=== PATIENT | female | born 1965 | race Caucasian/White ===

== ENCOUNTER 2018-03-17 06:54 | Inpatient (IN) | payer MEDICAID, OTHER ==
[~2018-03-17] VITALS: Ht 157.5 cm; Wt 83.9 kg
[~2018-03-17 06:54] MED LIST: ASPI-1159 PO; ATOR20TA PO; HYDR25TA PO; LISI-186 PO; METO100T16 PO; VALS320T2 PO
[2018-03-17] MEDS ORDERED: ASPIRIN 81MG TABLET PO ONE (07:45)
[2018-03-17] MEDS ORDERED: DILTIAZEM HCL 60MG TABLET PO ONE (07:45)
[2018-03-17 08:12] LABS: BASOPHILS % 0.4 % (0.0-2.0); EOSINOPHILS % 2.2 % (0.0-5.0); HEMATOCRIT. 42.1 % (36.0-48.0); HEMOGLOBIN. 14.4 g/dL (12.0-16.0); LYMPHOCYTES % 24.8 % (20.0-50.0); MEAN CORPUSCULAR HEMOGLOBIN 31.7 pg (28.0-32.0); MEAN CORPUSCULAR VOLUME 92.8 fL (81.0-99.0); NEUTROPHILS % 65.6 % (40.0-76.0); PLATELET 277 x1000/uL (130-400); RED BLOOD CELL COUNT 4.53 mill/uL (4.2-5.4); RED CELL DISTRIBUTION WIDTH 13.8 % (11.6-14.6)
[2018-03-17 08:17] LABS: CHLORIDE 105 mEq/L (98-107)
[2018-03-17 08:22] LABS: D-DIMER 0.21 mg/L FEU (<0.50); PARTIAL THROMBOPLASTIN TIME 28.4 sec (23.4-31.0); PROTHROMBIN TIME 9.6 sec (9.1-11.1)
[2018-03-17 08:25] LABS: HCG SCREEN NEGATIVE
[2018-03-17] MEDS ORDERED: DILT-26 PO (10:47)
[2018-03-17] MEDS ORDERED: ALBU18HF2 IH (10:49)
[2018-03-17 11:13] VITALS: BP 148/102
[2018-03-17] MEDS ORDERED: ONDANSETRON HCL 4MG/2ML INJ IV PRN (11:45)
[2018-03-17] MEDS ORDERED: MAGNESIUM/ALUMINUM HYDROXIDE/SIMETHICONE 30ML UDC PO PRN (11:45)
[2018-03-17] MEDS ORDERED: HYDROCODONE/ACETAMINOPHEN 5/325MG TABLET PO PRN (11:45)
[2018-03-17] MEDS ORDERED: ACETAMINOPHEN 650MG/20.3ML UDC GT PRN (11:45)
[2018-03-17] MEDS ORDERED: ACETAMINOPHEN 325MG TABLET PO PRN (11:45)
[2018-03-17] MEDS ORDERED: HYDROCODONE/ACETAMINOPHEN 10/325MG TABLET PO PRN (11:45)
[2018-03-17] MEDS ORDERED: ACETAMINOPHEN 650MG SUPP PR PRN (11:45)
[2018-03-17] MEDS ORDERED: INFLUENZA VIRUS VACCINE(AFLURIA) 0.5ML SYR IM ONE (12:00)
[2018-03-17] MEDS ORDERED: CLONIDINE 0.2MG TABLET PO PRN (13:15)
[2018-03-17] MEDS ORDERED: POTASSIUM CHLORIDE 20MEQ TABLET SR PO NR (13:30)
[2018-03-17] MEDS: LOSARTAN POTASSIUM 25 MG TABLET PO SCH ×2 (14:12→16:43)
[2018-03-17] MEDS: IPRATROPIUM/ALBUTEROL 0.5-3(2.5)MG/3ML NEB INH SCH ×2 (14:14→21:30)
[2018-03-17 15:56] VITALS: BP 114/64
[2018-03-17 16:50] LABS: CREATINE KINASE 59 IU/L (26-192)
[2018-03-17 16:52] LABS: CREATINE KINASE MB FRACTION < 1.0 ng/mL (0.5-3.6)
[2018-03-17] MEDS ORDERED: IPRATROPIUM/ALBUTEROL 0.5-3(2.5)MG/3ML NEB HHN PRN (18:45)
[2018-03-17 20:00] VITALS: BP 135/85
[2018-03-17] MEDS: METOPROLOL TARTRATE 100MG TABLET PO SCH (21:11)
[2018-03-17 21:57] LABS: CLARITY URINE CLOUDY (CLEAR); COLOR URINE YELLOW (YELLOW); KETONES URINE NEGATIVE (NEGATIVE); LEUKOCYTE ESTERASE URINE 3+ (NEGATIVE); NITRITE URINE POSITIVE (NEGATIVE); OCCULT BLOOD URINE TRACE (NEGATIVE); PROTEIN URINE NEGATIVE (NEGATIVE); SPECIFIC GRAVITY URINE 1.017 (1.005-1.030); UROBILINOGEN URINE 0.2 E.U./dL (0.2-1.0)
[2018-03-17 22:20] LABS: *AMPHETAMINES SCREEN URINE NEGATIVE (NEGATIVE)
[2018-03-17 22:21] LABS: *BENZODIAZEPINES SCREEN URINE NEGATIVE (NEGATIVE); *COCAINE SCREEN URINE NEGATIVE (NEGATIVE); CANNABINOID URINE SCREEN NEGATIVE (NEGATIVE); METHADONE URINE SCREEN NEGATIVE (NEGATIVE); OPIATES URINE SCREEN NEGATIVE (NEGATIVE); PHENCYCLIDINE URINE SCREEN NEGATIVE (NEGATIVE)
[2018-03-17 22:22] LABS: *BARBITURATES SCREEN URINE NEGATIVE (NEGATIVE)
[2018-03-18] VITALS (7 sets, daily range): BP systolic 119–139; BP diastolic 57–89
[2018-03-18] MEDS: IPRATROPIUM/ALBUTEROL 0.5-3(2.5)MG/3ML NEB INH SCH ×4 (02:07→20:00)
[2018-03-18 08:24] LABS: BASOPHILS % 0.6 % (0.0-2.0); EOSINOPHILS % 1.9 % (0.0-5.0); HEMATOCRIT. 40.5 % (36.0-48.0); HEMOGLOBIN. 13.7 g/dL (12.0-16.0); LYMPHOCYTES % 25.6 % (20.0-50.0); MEAN CORPUSCULAR HEMOGLOBIN 31.8 pg (28.0-32.0); MEAN CORPUSCULAR VOLUME 94.2 fL (81.0-99.0); MEAN PLATELET VOLUME 8.3 fl (7.4-10.4); MONOCYTES % 6.7 % (2.0-8.0); NEUTROPHILS % 65.2 % (40.0-76.0); PLATELET 260 x1000/uL (130-400); RED CELL DISTRIBUTION WIDTH 13.9 % (11.6-14.6)
[2018-03-18] MEDS: LOSARTAN POTASSIUM 25 MG TABLET PO SCH ×2 (09:07→17:00)
[2018-03-18] MEDS: METOPROLOL TARTRATE 100MG TABLET PO SCH ×2 (09:08→21:19)
[2018-03-18 09:31] LABS: CHLORIDE 106 mEq/L (98-107)
[2018-03-18 09:39] LABS: PHOSPHORUS 3.6 mg/dL (2.5-4.9)
[2018-03-18 09:40] LABS: LDL CHOLESTEROL 149 mg/dL (5-100); T4 FREE 0.93 ng/dL (0.76-1.46)
[2018-03-18 09:42] LABS: HDL CHOLESTEROL 44 mg/dL (40-59)
[2018-03-18] MEDS ORDERED: ATORVASTATIN CALCIUM 20MG TABLET PO SCH (21:00)
[2018-03-19] VITALS: BP 161/95
[2018-03-19] MEDS: IPRATROPIUM/ALBUTEROL 0.5-3(2.5)MG/3ML NEB INH SCH ×3 (01:48→13:55)
[2018-03-19 04:00] VITALS: BP 127/83
[2018-03-19 07:16] LABS: BASOPHILS % 0.4 % (0.0-2.0); EOSINOPHILS % 2.3 % (0.0-5.0); HEMATOCRIT. 39.7 % (36.0-48.0); HEMOGLOBIN. 13.4 g/dL (12.0-16.0); LYMPHOCYTES % 26.1 % (20.0-50.0); MEAN CORPUSCULAR HEMOGLOBIN 31.7 pg (28.0-32.0); MEAN CORPUSCULAR VOLUME 93.8 fL (81.0-99.0); MEAN PLATELET VOLUME 8.3 fl (7.4-10.4); MONOCYTES % 8.6 % (2.0-8.0); NEUTROPHILS % 62.6 % (40.0-76.0); PLATELET 256 x1000/uL (130-400); RED BLOOD CELL COUNT 4.23 mill/uL (4.2-5.4); RED CELL DISTRIBUTION WIDTH 13.9 % (11.6-14.6)
[2018-03-19 07:59] LABS: CHLORIDE 104 mEq/L (98-107)
[2018-03-19 08:00] VITALS: BP 129/86
[2018-03-19 08:14] LABS: PHOSPHORUS 4.2 mg/dL (2.5-4.9)
[2018-03-19] MEDS: LOSARTAN POTASSIUM 25 MG TABLET PO SCH (09:36)
[2018-03-19] MEDS: METOPROLOL TARTRATE 100MG TABLET PO SCH (09:36)
[2018-03-19 12:00] VITALS: BP 125/89
[2018-03-19] MEDS ORDERED: LOSA25TA3 PO (12:40)
== END 2018-03-19 18:40 | disposition home or self-care (01) | DRG 201 ==
LOC: ER 06:54 → 7WST 09:13 → ENRESERV 09:24
PROVIDERS: ADMIT Internal Medicine; ATTEND Internal Medicine
DX: I47.1 Supraventricular tachycardia (principal); I11.9 Hypertensive heart disease without heart failure; D64.9 Anemia, unspecified; E78.00 Pure hypercholesterolemia, unspecified; R73.9 Hyperglycemia, unspecified; J45.909 Unspecified asthma, uncomplicated; E78.5 Hyperlipidemia, unspecified; I25.2 Old myocardial infarction; Z95.5 Presence of coronary angioplasty implant and graft; Z87.442 Personal history of urinary calculi; Z88.5 Allergy status to narcotic agent; Z91.048 Other nonmedicinal substance allergy status; Z79.82 Long term (current) use of aspirin; Z79.899 Other long term (current) drug therapy
CPT/HCPCS: 36415; 71045; 80048; 80061; 80305; 82550; 82553; 83735; 83880; 84100; 84439; 84443; 84481; 84484; 84703; 85379; 90686; 93005; 93306; 93970; 94640; 99285; J7620

== ENCOUNTER 2018-08-29 21:26 | Emergency (ER) | payer MEDICAID ==
[~2018-08-29 21:26] MED LIST changes: +ALBU18HF2 IH; -HYDR25TA PO; -LISI-186 PO; +LOSA25TA3 PO; -VALS320T2 PO
== END 2018-08-29 22:31 | disposition left against medical advice (07) ==
LOC: ER 21:26
DX: Z53.21 Procedure and treatment not carried out due to patient leaving prior to being seen by health care provider (principal)

== ENCOUNTER 2020-05-04 17:00 | Emergency (ER) | payer MEDICAID ==
[~2020-05-04] VITALS: Ht 165.1 cm; Wt 90.0 kg
[~2020-05-04 17:00] MED LIST changes: -ALBU18HF2 IH; -ASPI-1159 PO; +ASPI-1497 PO; +CLON0.1T PO; +DIGO125T80 MT; +ISOS10TA2 MT
[2020-05-04] MEDS ORDERED: ACETAMINOPHEN 325MG TABLET PO STA (19:56)
[2020-05-04] MEDS ORDERED: IBUPROFEN 600MG TABLET PO STA (19:56)
[2020-05-04 20:10] LABS: BASOPHILS % 0.3 % (0.0-2.0); EOSINOPHILS % 2.5 % (0.0-5.0); HEMATOCRIT. 44.3 % (36.0-48.0); HEMOGLOBIN. 14.6 g/dL (12.0-16.0); LYMPHOCYTES % 13.5 % (20.0-50.0); MEAN CORPUSCULAR HEMOGLOBIN 31.9 pg (28.0-32.0); MEAN CORPUSCULAR VOLUME 96.9 fL (81.0-99.0); MEAN PLATELET VOLUME 9.6 fl (7.4-10.4); MONOCYTES % 7.7 % (2.0-8.0); PLATELET 246 x1000/uL (130-400); RED BLOOD CELL COUNT 4.57 mill/uL (4.2-5.4); RED CELL DISTRIBUTION WIDTH 15.9 % (11.6-14.6)
[2020-05-04 20:11] LABS: CHLORIDE 109 mEq/L (98-107)
[2020-05-04 20:15] LABS: HCG SCREEN NEGATIVE
[2020-05-04 20:20] LABS: CLARITY URINE CLEAR (CLEAR); COLOR URINE DARK YELLOW (YELLOW); KETONES URINE TRACE (NEGATIVE); LEUKOCYTE ESTERASE URINE 1+ (NEGATIVE); NITRITE URINE NEGATIVE (NEGATIVE); OCCULT BLOOD URINE NEGATIVE (NEGATIVE); PROTEIN URINE 1+ (NEGATIVE); SPECIFIC GRAVITY URINE 1.024 (1.005-1.030)
[2020-05-04 23:25] VITALS: BP 132/82
== END 2020-05-04 23:40 | disposition home or self-care (01) ==
LOC: ER 17:00
DX: R10.9 Unspecified abdominal pain (principal); J90 Pleural effusion, not elsewhere classified; R11.0 Nausea; M79.89 Other specified soft tissue disorders; I25.2 Old myocardial infarction; Z86.73 Personal history of transient ischemic attack (TIA), and cerebral infarction without residual deficits; Z87.442 Personal history of urinary calculi; Z91.041 Radiographic dye allergy status; Z91.013 Allergy to seafood; Z79.82 Long term (current) use of aspirin; Z79.899 Other long term (current) drug therapy; Z88.6 Allergy status to analgesic agent; Z88.8 Allergy status to other drugs, medicaments and biological substances; Z88.5 Allergy status to narcotic agent; Z90.49 Acquired absence of other specified parts of digestive tract; Z90.89 Acquired absence of other organs; Z98.890 Other specified postprocedural states
CPT/HCPCS: 36415; 71045; 76705; 80053; 81003; 83880; 84703; 85025; 93005; 99285

== ENCOUNTER 2020-08-14 21:04 | Inpatient (IN) | payer MEDICAID, OTHER ==
[~2020-08-14] VITALS: Ht 157.5 cm; Wt 105.7 kg
[2020-08-14] MEDS ORDERED: LORAZEPAM 1MG TABLET PO ONE (21:45)
[2020-08-14] MEDS ORDERED: FUROSEMIDE 40MG/4ML VIAL IVP ONE (22:45)
[2020-08-14 23:21] LABS: CHLORIDE 103 mEq/L (98-107)
[2020-08-14] MEDS ORDERED: ASPIRIN 325MG EC TABLET PO NR (23:45)
[2020-08-14 23:47] LABS: BASOPHILS % 0.8 % (0.0-2.0); EOSINOPHILS % 1.8 % (0.0-5.0); HEMATOCRIT. 41.7 % (36.0-48.0); HEMOGLOBIN. 13.5 g/dL (12.0-16.0); LYMPHOCYTES % 16.1 % (20.0-50.0); MEAN CORPUSCULAR HEMOGLOBIN 30.9 pg (28.0-32.0); MEAN CORPUSCULAR VOLUME 95.5 fL (81.0-99.0); MEAN PLATELET VOLUME 8.4 fl (7.4-10.4); MONOCYTES % 5.6 % (2.0-8.0); NEUTROPHILS % 75.7 % (40.0-76.0); PLATELET 280 x1000/uL (130-400); RED BLOOD CELL COUNT 4.37 mill/uL (4.2-5.4); RED CELL DISTRIBUTION WIDTH 17.3 % (11.6-14.6)
[2020-08-15 02:16] LABS: CLARITY URINE CLEAR (CLEAR); COLOR URINE YELLOW (YELLOW); KETONES URINE NEGATIVE (NEGATIVE); LEUKOCYTE ESTERASE URINE NEGATIVE (NEGATIVE); NITRITE URINE NEGATIVE (NEGATIVE); OCCULT BLOOD URINE NEGATIVE (NEGATIVE); PH URINE 6.5 (4.5-8.0); PROTEIN URINE NEGATIVE (NEGATIVE); UROBILINOGEN URINE 0.2 E.U./dL (0.2-1.0)
[2020-08-15] MEDS ORDERED: FENTANYL CITRATE/PF 50MCG/ML 2ML VIAL ONE ×3 (03:51→05:49)
[2020-08-15] MEDS ORDERED: BUPIVACAINE HCL/PF 0.25% (2.5MG/ML) 10ML ONE ×3 (03:51→05:50)
[2020-08-15] MEDS ORDERED: CLONIDINE 0.1MG TABLET PO PRN (09:30)
[2020-08-15] MEDS ORDERED: ACETAMINOPHEN 325MG TABLET PO PRN (09:30)
[2020-08-15] MEDS ORDERED: DOCUSATE SODIUM 100MG CAPSULE PO PRN (09:30)
[2020-08-15] MEDS ORDERED: LORAZEPAM 0.5MG TABLET PO PRN (09:30)
[2020-08-15] MEDS ORDERED: LOSA1TAB40 PO (11:49)
[2020-08-15] MEDS ORDERED: OMEP20CA14 MT (11:50)
[2020-08-15 11:52] VITALS: BP 121/94
[2020-08-15 12:00] VITALS: BP 101/80
[2020-08-15] MEDS: FUROSEMIDE 40MG/4ML VIAL IVP SCH ×2 (12:57→16:47)
[2020-08-15] MEDS: POTASSIUM CHLORIDE 20MEQ TABLET SR PO SCH (12:57)
[2020-08-15 17:25] VITALS: BP 107/74
[2020-08-15] MEDS: ASPIRIN 81MG EC TABLET PO SCH (17:49)
[2020-08-15] MEDS: OMEPRAZOLE 20MG CAPSULE EXTENDED RELEASE PO SCH (17:49)
[2020-08-15] MEDS: LORAZEPAM 2MG/ML CPJ IV PRN (17:50)
[2020-08-15 20:00] VITALS: BP 104/75
[2020-08-15] MEDS: BUSPIRONE HCL 5MG TABLET PO SCH (21:35)
[2020-08-15] MEDS: ATORVASTATIN CALCIUM 20MG TABLET PO SCH (21:36)
[2020-08-15] MEDS: METOPROLOL TARTRATE 50MG TABLET PO SCH (21:36)
[2020-08-16] VITALS: BP 99/77
[2020-08-16] MEDS: LORAZEPAM 2MG/ML CPJ IV PRN (03:00)
[2020-08-16 04:00] VITALS: BP 113/83
[2020-08-16 06:55] LABS: BASOPHILS % 0.9 % (0.0-2.0); EOSINOPHILS % 0.9 % (0.0-5.0); HEMATOCRIT. 40.9 % (36.0-48.0); HEMOGLOBIN. 13.8 g/dL (12.0-16.0); LYMPHOCYTES % 15.5 % (20.0-50.0); MEAN CORPUSCULAR HEMOGLOBIN 32.1 pg (28.0-32.0); MEAN CORPUSCULAR VOLUME 95.3 fL (81.0-99.0); MEAN PLATELET VOLUME 8.7 fl (7.4-10.4); MONOCYTES % 5.9 % (2.0-8.0); NEUTROPHILS % 76.8 % (40.0-76.0); PLATELET 277 x1000/uL (130-400); RED BLOOD CELL COUNT 4.29 mill/uL (4.2-5.4); RED CELL DISTRIBUTION WIDTH 17.7 % (11.6-14.6)
[2020-08-16 07:17] LABS: CHLORIDE 102 mEq/L (98-107)
[2020-08-16] MEDS: LOSARTAN POTASSIUM 25 MG TABLET PO SCH (09:00)
[2020-08-16] MEDS: METOPROLOL TARTRATE 50MG TABLET PO SCH (09:00)
[2020-08-16] MEDS: ASPIRIN 81MG EC TABLET PO SCH (09:03)
[2020-08-16] MEDS: FUROSEMIDE 40MG/4ML VIAL IVP SCH ×2 (09:03→18:00)
[2020-08-16] MEDS: OMEPRAZOLE 20MG CAPSULE EXTENDED RELEASE PO SCH (09:03)
[2020-08-16] MEDS: BUSPIRONE HCL 5MG TABLET PO SCH ×2 (09:03→20:57)
[2020-08-16] MEDS: POTASSIUM CHLORIDE 20MEQ TABLET SR PO SCH (09:07)
[2020-08-16 12:01] VITALS: BP 103/75
[2020-08-16] MEDS: SPIRONOLACTONE 25MG TABLET PO SCH (15:14)
[2020-08-16 16:05] VITALS: BP 114/81
[2020-08-16 20:00] VITALS: BP 106/82
[2020-08-16] MEDS: FAMOTIDINE 20MG TABLET PO SCH (20:57)
[2020-08-16] MEDS: ATORVASTATIN CALCIUM 20MG TABLET PO SCH (20:57)
[2020-08-16] MEDS: CARVEDILOL 6.25 MG TABLET PO SCH (20:58)
[2020-08-16] MEDS: ACETAMINOPHEN 325MG TABLET PO PRN (21:04)
[2020-08-17] VITALS: BP 105/80
[2020-08-17 04:00] VITALS: BP 111/87
[2020-08-17 07:41] LABS: BASOPHILS % 0.8 % (0.0-2.0); HEMATOCRIT. 39.8 % (36.0-48.0); HEMOGLOBIN. 13.2 g/dL (12.0-16.0); LYMPHOCYTES % 16.6 % (20.0-50.0); MEAN CORPUSCULAR HEMOGLOBIN 31.2 pg (28.0-32.0); MEAN PLATELET VOLUME 8.5 fl (7.4-10.4); MONOCYTES % 5.7 % (2.0-8.0); NEUTROPHILS % 75.9 % (40.0-76.0); PLATELET 227 x1000/uL (130-400); RED BLOOD CELL COUNT 4.24 mill/uL (4.2-5.4); RED CELL DISTRIBUTION WIDTH 17.7 % (11.6-14.6)
[2020-08-17 08:00] VITALS: BP 120/93
[2020-08-17] MEDS: BUSPIRONE HCL 5MG TABLET PO SCH ×2 (08:29→21:37)
[2020-08-17] MEDS: SPIRONOLACTONE 25MG TABLET PO SCH (08:29)
[2020-08-17] MEDS: FUROSEMIDE 40MG/4ML VIAL IVP SCH ×2 (08:30→17:04)
[2020-08-17] MEDS: CARVEDILOL 6.25 MG TABLET PO SCH ×2 (08:30→21:38)
[2020-08-17] MEDS: ASPIRIN 81MG EC TABLET PO SCH (08:30)
[2020-08-17] MEDS: FAMOTIDINE 20MG TABLET PO SCH ×2 (08:30→21:37)
[2020-08-17 08:33] LABS: CHLORIDE 99 mEq/L (98-107)
[2020-08-17] MEDS: LOSARTAN POTASSIUM 25 MG TABLET PO SCH (08:38)
[2020-08-17] MEDS: ONDANSETRON HCL 4MG/2ML INJ IV PRN ×2 (09:56→17:04)
[2020-08-17] MEDS: ACETAMINOPHEN 325MG TABLET PO PRN (09:56)
[2020-08-17 12:00] VITALS: BP 115/88
[2020-08-17 16:00] VITALS: BP 102/71
[2020-08-17 20:34] VITALS: BP 117/69
[2020-08-17] MEDS: ATORVASTATIN CALCIUM 20MG TABLET PO SCH (21:37)
[2020-08-18 00:29] VITALS: BP 103/67
[2020-08-18 04:00] VITALS: BP 102/75
[2020-08-18 07:16] LABS: BASOPHILS % 0.7 % (0.0-2.0); EOSINOPHILS % 1.1 % (0.0-5.0); HEMATOCRIT. 39.5 % (36.0-48.0); HEMOGLOBIN. 13.1 g/dL (12.0-16.0); LYMPHOCYTES % 15.9 % (20.0-50.0); MEAN CORPUSCULAR HEMOGLOBIN 31.4 pg (28.0-32.0); MEAN CORPUSCULAR VOLUME 94.9 fL (81.0-99.0); MEAN PLATELET VOLUME 9.7 fl (7.4-10.4); MONOCYTES % 7.1 % (2.0-8.0); NEUTROPHILS % 75.2 % (40.0-76.0); PLATELET 202 x1000/uL (130-400); RED BLOOD CELL COUNT 4.16 mill/uL (4.2-5.4); RED CELL DISTRIBUTION WIDTH 17.4 % (11.6-14.6)
[2020-08-18 07:26] LABS: CHLORIDE 98 mEq/L (98-107)
[2020-08-18 08:00] VITALS: BP 118/85
[2020-08-18] MEDS: FUROSEMIDE 40MG/4ML VIAL IVP SCH ×2 (09:20→16:28)
[2020-08-18] MEDS: LOSARTAN POTASSIUM 25 MG TABLET PO SCH (09:20)
[2020-08-18] MEDS: FAMOTIDINE 20MG TABLET PO SCH ×2 (09:20→21:38)
[2020-08-18] MEDS: ASPIRIN 81MG EC TABLET PO SCH (09:20)
[2020-08-18] MEDS: CARVEDILOL 6.25 MG TABLET PO SCH ×2 (09:30→21:00)
[2020-08-18] MEDS: SPIRONOLACTONE 25MG TABLET PO SCH (09:31)
[2020-08-18] MEDS: BUSPIRONE HCL 10MG TABLET PO SCH ×2 (10:11→21:38)
[2020-08-18 12:00] VITALS: BP 95/64
[2020-08-18] MEDS ORDERED: SILVER NITRATE APPLICATOR STICK TOP NR (12:05)
[2020-08-18] MEDS: HYDROCORTISONE 2.5% CREAM 20GM TOP SCH (15:07)
[2020-08-18 16:00] VITALS: BP 100/64
[2020-08-18 20:00] VITALS: BP 90/63
[2020-08-18] MEDS: ATORVASTATIN CALCIUM 20MG TABLET PO SCH (21:38)
[2020-08-19] VITALS: BP 91/53
[2020-08-19 04:00] VITALS: BP 108/86
[2020-08-19 07:08] LABS: BASOPHILS % 0.5 % (0.0-2.0); EOSINOPHILS % 1.7 % (0.0-5.0); HEMATOCRIT. 38.8 % (36.0-48.0); HEMOGLOBIN. 12.9 g/dL (12.0-16.0); LYMPHOCYTES % 18.1 % (20.0-50.0); MEAN CORPUSCULAR HEMOGLOBIN 31.6 pg (28.0-32.0); MEAN CORPUSCULAR VOLUME 94.9 fL (81.0-99.0); MEAN PLATELET VOLUME 9.2 fl (7.4-10.4); NEUTROPHILS % 71.7 % (40.0-76.0); PLATELET 219 x1000/uL (130-400); RED BLOOD CELL COUNT 4.09 mill/uL (4.2-5.4); RED CELL DISTRIBUTION WIDTH 17.5 % (11.6-14.6)
[2020-08-19 08:00] VITALS: BP 118/89
[2020-08-19] MEDS: ASPIRIN 81MG EC TABLET PO SCH (09:47)
[2020-08-19] MEDS: FUROSEMIDE 40MG/4ML VIAL IVP SCH (09:48)
[2020-08-19] MEDS: SPIRONOLACTONE 25MG TABLET PO SCH (09:48)
[2020-08-19] MEDS: FAMOTIDINE 20MG TABLET PO SCH (09:48)
[2020-08-19] MEDS: BUSPIRONE HCL 10MG TABLET PO SCH (09:48)
[2020-08-19] MEDS: CARVEDILOL 6.25 MG TABLET PO SCH (09:48)
[2020-08-19] MEDS: LOSARTAN POTASSIUM 25 MG TABLET PO SCH (09:56)
[2020-08-19] MEDS ORDERED: PHENOL/SODIUM PHENOLATE 1.4% SRPAY 177ML MM PRN (11:00)
[2020-08-19] MEDS ORDERED: HYDR453.3 TOP (11:06)
[2020-08-19] MEDS ORDERED: BUSP10TA4 PO (11:06)
[2020-08-19] MEDS ORDERED: LOSA25TA3 PO (11:06)
[2020-08-19] MEDS ORDERED: FURO40TA5 MT (11:06)
[2020-08-19] MEDS ORDERED: COR6 PO (11:06)
[2020-08-19] MEDS ORDERED: FAMO20TA8 PO (11:06)
[2020-08-19] MEDS ORDERED: SPIR25TA PO (11:06)
[2020-08-19] MEDS ORDERED: ACET325T52 MT (11:07)
[2020-08-19] MEDS: HYDROCORTISONE 2.5% CREAM 20GM TOP SCH (11:30)
[2020-08-19] MEDS ORDERED: SILVER NITRATE APPLICATOR STICK TOP NR (11:30)
[2020-08-19 12:00] VITALS: BP 120/63
[2020-08-19 16:00] VITALS: BP 108/78
[2020-08-19 17:34] VITALS: BP 108/84
== END 2020-08-19 18:30 | disposition home or self-care (01) | DRG 194 ==
LOC: ER 21:04 → 6WST 08-15 00:08 → ENRESERV 08-15 08:04
PROVIDERS: ADMIT Internal Medicine; ATTEND Internal Medicine
PROC: 0HDNXZZ Extraction of Left Foot Skin, External Approach (ICD-10-PCS; principal; 2020-08-18)
DX: I11.0 Hypertensive heart disease with heart failure (principal); I47.1 Supraventricular tachycardia; I50.23 Acute on chronic systolic (congestive) heart failure; E66.01 Morbid (severe) obesity due to excess calories; F41.1 Generalized anxiety disorder; F43.20 Adjustment disorder, unspecified; I27.81 Cor pulmonale (chronic); I42.0 Dilated cardiomyopathy; E87.6 Hypokalemia; J45.909 Unspecified asthma, uncomplicated; I31.3 Pericardial effusion (noninflammatory); I87.2 Venous insufficiency (chronic) (peripheral); I73.9 Peripheral vascular disease, unspecified; L84 Corns and callosities; I24.8 Other forms of acute ischemic heart disease; B07.9 Viral wart, unspecified; I25.10 Atherosclerotic heart disease of native coronary artery without angina pectoris; I25.2 Old myocardial infarction; Z79.82 Long term (current) use of aspirin; Z87.442 Personal history of urinary calculi; Z91.041 Radiographic dye allergy status; Z86.73 Personal history of transient ischemic attack (TIA), and cerebral infarction without residual deficits; Z88.8 Allergy status to other drugs, medicaments and biological substances; Z91.013 Allergy to seafood; Z98.891 History of uterine scar from previous surgery; Z88.6 Allergy status to analgesic agent; Z91.018 Allergy to other foods; Z68.41 Body mass index [BMI] 40.0-44.9, adult
CPT/HCPCS: 36415; 71045; 76700; 80048; 80053; 80061; 81003; 83735; 83880; 84443; 84484; 85025; 93005; 93306; 93923; 99291; C1893; J1940; J2060; J2405; J3010; J3490

== ENCOUNTER 2022-05-24 12:57 | Inpatient (IN) | payer MEDICAID, OTHER ==
[~2022-05-24] VITALS: Ht 152.4 cm; Wt 99.8 kg
[~2022-05-24 12:57] MED LIST changes: +ACET325T52 MT; +BUSP10TA4 PO; -CLON0.1T PO; +COR6 PO; -DIGO125T80 MT; +FAMO20TA8 PO; +FURO40TA5 MT; +HYDR453.3 TOP; -ISOS10TA2 MT; -METO100T16 PO; +SPIR25TA PO
[2022-05-24] MEDS ORDERED: SODIUM CHLORIDE 0.9% 1,000 ML IV ONE (14:45)
[2022-05-24] MEDS ORDERED: DIPHENHYDRAMINE 50MG/ML VIAL IV ONE (14:45)
[2022-05-24] MEDS ORDERED: METOCLOPRAMIDE HCL 10MG/2ML VIAL IV ONE (14:45)
[2022-05-24 15:45] LABS: BASOPHILS % 0.7 % (0.0-2.0); EOSINOPHILS % 1.7 % (0.0-5.0); HEMATOCRIT. 42.5 % (36.0-48.0); HEMOGLOBIN. 14.7 g/dL (12.0-16.0); LYMPHOCYTES % 23.9 % (20.0-50.0); MEAN CORPUSCULAR HEMOGLOBIN 31.9 pg (28.0-32.0); MEAN PLATELET VOLUME 8.6 fl (7.4-10.4); MONOCYTES % 9.2 % (2.0-8.0); NEUTROPHILS % 64.5 % (40.0-76.0); PLATELET 240 x1000/uL (130-400); RED BLOOD CELL COUNT 4.62 mill/uL (4.2-5.4); RED CELL DISTRIBUTION WIDTH 13.6 % (11.6-14.6)
[2022-05-24 16:08] LABS: CHLORIDE 107 mEq/L (98-107)
[2022-05-24 16:10] LABS: HCG SCREEN NEGATIVE
[2022-05-24 16:23] LABS: CLARITY URINE CLOUDY (CLEAR); COLOR URINE DARK YELLOW (YELLOW); KETONES URINE TRACE (NEGATIVE); LEUKOCYTE ESTERASE URINE TRACE (NEGATIVE); NITRITE URINE NEGATIVE (NEGATIVE); OCCULT BLOOD URINE NEGATIVE (NEGATIVE); PH URINE 5.5 (4.5-8.0); PROTEIN URINE 2+ (NEGATIVE); SPECIFIC GRAVITY URINE 1.029 (1.005-1.030)
[2022-05-24] MEDS ORDERED: ENOXAPARIN 100MG/ML SYR SUBCUT ONE (17:15)
[2022-05-25] VITALS (7 sets, daily range): BP systolic 113–172; BP diastolic 67–104
[2022-05-25] MEDS ORDERED: ALBU6.7H15 INH (00:40)
[2022-05-25] MEDS ORDERED: CARV12.545 MT (00:40)
[2022-05-25] MEDS ORDERED: SEMA14TA2 PO (00:40)
[2022-05-25] MEDS ORDERED: DEXTROSE 50% WATER 50ML SYRINGE IV PRN (04:15)
[2022-05-25] MEDS ORDERED: CLONIDINE 0.1MG TABLET PO PRN (04:15)
[2022-05-25] MEDS ORDERED: TRAMADOL 50MG TABLET PO PRN (04:15)
[2022-05-25] MEDS: ACETAMINOPHEN 325MG TABLET PO PRN ×2 (04:36→19:37)
[2022-05-25] MEDS: BLOOD SUGAR DIAGNOSTIC STRIP TEST SCH ×4 (06:36→20:43)
[2022-05-25] MEDS ORDERED: OMEP20CA14 MT (06:42)
[2022-05-25] MEDS: INSULIN LISPRO 100 UNITS/ML SUBCUT SCH ×4 (07:31→20:43)
[2022-05-25] MEDS: ASPIRIN 81MG EC TABLET PO SCH (08:48)
[2022-05-25] MEDS: SPIRONOLACTONE 25MG TABLET PO SCH (08:48)
[2022-05-25] MEDS: CARVEDILOL 12.5MG TABLET PO SCH ×2 (08:49→17:28)
[2022-05-25] MEDS: OMEPRAZOLE 20MG CAPSULE EXTENDED RELEASE PO SCH (08:50)
[2022-05-25] MEDS: ENOXAPARIN 30MG/0.3ML SYR SUBCUT SCH ×2 (08:50→20:44)
[2022-05-25] MEDS ORDERED: ASPIRIN 81MG TABLET PO SCH (09:00)
[2022-05-25] MEDS: AMLODIPINE 10MG TABLET PO SCH (11:29)
[2022-05-25 16:38] LABS: CHLORIDE 106 mEq/L (98-107)
[2022-05-25 16:45] LABS: CREATINE KINASE MB FRACTION 1.2 ng/mL (0.5-3.6)
[2022-05-25 16:55] LABS: HDL CHOLESTEROL 40 mg/dL (40-59); LDL CHOLESTEROL 103 mg/dL (5-100)
[2022-05-26 04:15] VITALS: BP 138/82
[2022-05-26 06:19] LABS: BASOPHILS % 0.4 % (0.0-2.0); EOSINOPHILS % 2.5 % (0.0-5.0); HEMATOCRIT. 40.6 % (36.0-48.0); HEMOGLOBIN. 13.8 g/dL (12.0-16.0); LYMPHOCYTES % 28.7 % (20.0-50.0); MEAN CORPUSCULAR HEMOGLOBIN 31.8 pg (28.0-32.0); MEAN CORPUSCULAR VOLUME 93.4 fL (81.0-99.0); MEAN PLATELET VOLUME 8.6 fl (7.4-10.4); MONOCYTES % 6.6 % (2.0-8.0); NEUTROPHILS % 61.8 % (40.0-76.0); PLATELET 219 x1000/uL (130-400); RED BLOOD CELL COUNT 4.35 mill/uL (4.2-5.4); RED CELL DISTRIBUTION WIDTH 13.8 % (11.6-14.6)
[2022-05-26 06:29] LABS: CHLORIDE 105 mEq/L (98-107)
[2022-05-26] MEDS: BLOOD SUGAR DIAGNOSTIC STRIP TEST SCH ×3 (06:41→17:51)
[2022-05-26 08:00] VITALS: BP 149/99
[2022-05-26] MEDS: INSULIN LISPRO 100 UNITS/ML SUBCUT SCH ×3 (08:06→17:52)
[2022-05-26] MEDS ORDERED: FUROSEMIDE 40MG TABLET PO SCH (09:00)
[2022-05-26] MEDS: OMEPRAZOLE 20MG CAPSULE EXTENDED RELEASE PO SCH (09:54)
[2022-05-26] MEDS: ASPIRIN 81MG EC TABLET PO SCH (10:07)
[2022-05-26] MEDS: SPIRONOLACTONE 25MG TABLET PO SCH (10:07)
[2022-05-26] MEDS: POTASSIUM CHLORIDE 20MEQ TABLET SR PO SCH ×2 (10:07→18:17)
[2022-05-26] MEDS: CARVEDILOL 12.5MG TABLET PO SCH ×2 (10:08→18:19)
[2022-05-26] MEDS: AMLODIPINE 10MG TABLET PO SCH (10:08)
[2022-05-26] MEDS: ENOXAPARIN 30MG/0.3ML SYR SUBCUT SCH (10:09)
[2022-05-26 12:00] VITALS: BP 145/88
[2022-05-26] MEDS ORDERED: FURO40TA5 PO (12:25)
[2022-05-26] MEDS ORDERED: SPIR25TA PO (12:25)
[2022-05-26] MEDS ORDERED: CARV12.545 MT (12:25)
[2022-05-26] MEDS ORDERED: AMLO10TA80 PO (12:25)
[2022-05-26 16:00] VITALS: BP 140/76
[2022-05-26 18:20] VITALS: BP 144/94
[2022-05-27] MEDS ORDERED: FAMOTIDINE 20MG TABLET PO SCH (09:00)
== END 2022-05-26 18:35 | disposition home or self-care (01) | DRG 199 ==
LOC: ER 12:57 → 7WST 19:41 → EDBEDREQ 19:44
PROVIDERS: ADMIT Internal Medicine; ATTEND Internal Medicine
DX: I16.1 Hypertensive emergency (principal); I21.A1 Myocardial infarction type 2; I67.4 Hypertensive encephalopathy; I27.81 Cor pulmonale (chronic); I42.0 Dilated cardiomyopathy; I50.22 Chronic systolic (congestive) heart failure; I11.0 Hypertensive heart disease with heart failure; J45.909 Unspecified asthma, uncomplicated; E11.9 Type 2 diabetes mellitus without complications; E78.5 Hyperlipidemia, unspecified; I25.2 Old myocardial infarction; I47.1 Supraventricular tachycardia; Z20.822 Contact with and (suspected) exposure to COVID-19; I25.10 Atherosclerotic heart disease of native coronary artery without angina pectoris; Z86.73 Personal history of transient ischemic attack (TIA), and cerebral infarction without residual deficits; Z88.6 Allergy status to analgesic agent; Z91.041 Radiographic dye allergy status; Z95.5 Presence of coronary angioplasty implant and graft; Z98.891 History of uterine scar from previous surgery; Z79.82 Long term (current) use of aspirin; Z79.84 Long term (current) use of oral hypoglycemic drugs; Z87.442 Personal history of urinary calculi; Z79.899 Other long term (current) drug therapy; Z91.013 Allergy to seafood; Z91.018 Allergy to other foods; Z68.41 Body mass index [BMI] 40.0-44.9, adult; E66.9 Obesity, unspecified
CPT/HCPCS: 36415; 71045; 80048; 80053; 80061; 81003; 82550; 82553; 82962; 83036; 83735; 83880; 84439; 84443; 84480; 84484; 84703; 85025; 87426; 93005; 93306; 99291; C9803; J1200; J1650; J2765; J7030